=== PATIENT | female | born 1990 | race Hispanic/Latino ===

== ENCOUNTER 2016-06-29 13:17 | Outpatient (CLI) | payer MEDICAID | END 2016-06-29 13:18 | disposition home or self-care (01) | LOC: HPCALD 13:17 | PROVIDERS: ATTEND Physician Assistant | DX: Z01.419 Encounter for gynecological examination (general) (routine) without abnormal findings (principal) | CPT/HCPCS: 87480; 87491; 87510; 87591; 87660; 88142; G0123 ==